=== PATIENT | male | born 1985 | race African-American/Black ===

== ENCOUNTER 2020-02-17 22:44 | Emergency (ER) | payer MEDICAID ==
[~2020-02-17] VITALS: Ht 170.2 cm; Wt 63.0 kg
[2020-02-18 01:38] LABS: BASOPHILS % 1.6 % (0.0-2.0); EOSINOPHILS % 0.8 % (0.0-5.0); HEMATOCRIT. 40.6 % (42.0-52.0); LYMPHOCYTES % 30.2 % (20.0-50.0); MEAN CORPUSCULAR HEMOGLOBIN 34.2 pg (28.0-32.0); MEAN CORPUSCULAR VOLUME 99.6 fL (80.0-94.0); MEAN PLATELET VOLUME 7.1 fl (7.4-10.4); MONOCYTES % 7.9 % (2.0-8.0); NEUTROPHILS % 59.5 % (40.0-76.0); PLATELET 248 x1000/uL (130-400); RED BLOOD CELL COUNT 4.08 mill/uL (4.7-6.1); RED CELL DISTRIBUTION WIDTH 15.3 % (11.6-14.6)
[2020-02-18 01:42] LABS: CHLORIDE 108 mEq/L (98-107)
[2020-02-18 01:55] LABS: ETHANOL BLOOD 383 mg/dL
[2020-02-18 05:15] VITALS: BP 116/62
== END 2020-02-18 05:59 | disposition home or self-care (01) ==
LOC: ER 22:44
DX: F10.129 Alcohol abuse with intoxication, unspecified (principal); F17.210 Nicotine dependence, cigarettes, uncomplicated; Y90.8 Blood alcohol level of 240 mg/100 ml or more
CPT/HCPCS: 36415; 80053; 80307; 80320; 80329; 84443; 85025; 99283; G0480